=== PATIENT | male | born 1975 | race Caucasian/White ===

== ENCOUNTER 2019-01-07 22:45 | Emergency (ER) | payer SELFPAY | END 2019-01-07 23:38 | disposition home or self-care (01) | LOC: BURERS 22:45 | DX: R07.2 Precordial pain (principal); I10 Essential (primary) hypertension; F41.9 Anxiety disorder, unspecified; F17.220 Nicotine dependence, chewing tobacco, uncomplicated; Z79.899 Other long term (current) drug therapy | CPT/HCPCS: 84484; 93005 ==